=== PATIENT | female | born 1970 | race Caucasian/White ===

== ENCOUNTER 2018-06-17 10:31 | Observation (INO) ==
--- NOTE | 2018-06-16 22:21 | MH ---
cc: James Coleman MD DATE OF ADMISSION: 06/17/2018 ADMITTING DIAGNOSIS: Dysmenorrhea refractory to medical therapy. HISTORY OF PRESENT ILLNESS: The patient is a 47-year-old MW female, para 2-0-1-2, has been utilizing OCPs to decrease dysmenorrhea, and despite continuous therapy, that has continued. Her menstrual control has been good, but the cramping has worsened. Her most recent ultrasound from 04/24/2018 showed a 1.9 cm fibroid and the ovaries appeared normal. She is now admitted for hysterectomy. PAST MEDICAL HISTORY: Previous surgery included a in 1997 and 1994. MEDICATIONS: Vitamins, OCPs, paroxetine 40 mg daily. ALLERGIES: NONE. TRANSFUSIONS: None. SOCIAL HISTORY: Alcohol: Occasional. Tobacco: None. Drugs: None. FAMILY HISTORY: Noncontributory. PHYSICAL EXAMINATION: GENERAL: She is well-nourished, well-developed. VITAL SIGNS: Stable. HEENT: Normal. CHEST: Lungs clear. HEART: Regular rate. BREASTS: Symmetrical. ABDOMEN: Benign. PELVIC: External genitalia. Vagina normal. Cervix normal. She is about 12-week size. Adnexa nonpalpable. PLAN: As above, she is now admitted for laparoscopy with bilateral salpingectomy, with ovarian sparing if they are normal. The risks, benefits, alternatives, and complications explained and accepted. She is aware she may require later replacement therapy when she goes through menopause. If the ovaries are abnormal, selectively removed. MD QUIANA Rodriguez/[email or web address]/mojgan , 09:01 PM , 09:07 PM KARAN
[2018-06-17] MEDS ORDERED: ceFAZolin 2 GM Premix Inj 2 GM/100 ML BAG IV.SIG ONE (11:12)
[2018-06-17] MEDS ORDERED: Ketorolac Inj 30 MG/ML (IVP) Vial IV.PUSH ONE (12:00)
[2018-06-17] MEDS ORDERED: Glycopyrrolate Inj 1 MG/5 ML Syringe IV.PUSH ONE (12:00)
[2018-06-17] MEDS ORDERED: Neostigmine Inj 5 MG/5 ML Syringe IV.PUSH ONE (12:00)
[2018-06-17] MEDS ORDERED: ceFAZolin 2 GM/NS 100 ML IV; Q8H IV.SIG SCH ×2 (12:00)
[2018-06-17] MEDS ORDERED: Lidocaine PF 1% Inj 5 ML Syringe INFILTRATN ONE (12:00)
[2018-06-17] MEDS ORDERED: Metoprolol Tartrate 25 MG Tablet PO SCH (14:15)
[2018-06-17] MEDS ORDERED: Chlorhexidine Gluconate 2% 1 Pack (2 Cloths) TOPICAL SCH (14:15)
[2018-06-17] MEDS ORDERED: Bupivacaine Liposomal PF 1.3% Inj 20 ML Vial ONE (14:17)
[2018-06-17] MEDS ORDERED: Bupivacaine PF 0.5% Inj 30 ML Vial ONE (14:17)
[2018-06-17] MEDS ORDERED: HYDROmorphone PF Inj 1 MG/ML Ampul IV.PUSH PRN ×2 (14:32→15:08)
[2018-06-17] MEDS ORDERED: *Meperidine Inj 25 MG/ML Vial PERIprocedural Use ONLY ONE (14:41)
[2018-06-17] MEDS ORDERED: Sodium Chlor 0.9% Inj 500 ML IV.SIG SCH (15:00)
[2018-06-17] MEDS ORDERED: *morphine SULFATE 4 MG/ML PERIprocedure ONLY ONE (15:24)
[2018-06-17] MEDS: KCL 20 mEq/D5W/NaCl 0.45% Inj 1,000 ML IV.CONT SCH (15:30)
--- NOTE | 2018-06-17 15:53 | MP ---
cc: James Coleman MD DATE OF OPERATION: 06/17/2018 PREOPERATIVE DIAGNOSES: 1. Dysmenorrhea. 2. Uterine fibroids. POSTOPERATIVE DIAGNOSES: 1. Dysmenorrhea. 2. Uterine fibroids. 3. Left ovarian cystic mass. PROCEDURE PERFORMED: 1. Laparoscopy with a LASH. 2. Left salpingo-oophorectomy. 3. Right salpingectomy. ANESTHESIA: General, ET. SURGEON: James Coleman MD SALES [employer]ETING PROFESSIONAL: Liza Adams ESTIMATED BLOOD LOSS: Less than 50 mL FLUIDS: 1.1 liter crystalloid. OBJECTIVE FINDINGS: Following induction of adequate general endotracheal anesthesia, the patient was prepped and draped supine on the operating table in dorsal lithotomy position in sterile fashion with the bladder being drained via Siddiqui catheterization. The abdomen 3 cm curving infraumbilical incision using a knife to cut down through the skin to the fascia. The fascia opened transversely, stripped from the muscles and the peritoneum opened bluntly. The GelPort was placed. Laparoscope inserted. A 5mm port was placed in left lower quadrant and Airseall in the right lower quadrant. The uterus was about 12-week size with fibroids. Normal tubes, normal right ovary. Left ovary was cystic about 5 cm. Cul-de-sacs were clear. Liver edge was normal. Appendix was normal. Working first on the left, Harmonic scalpel was used to take the left ovarian vessels, left round ligament, left broad ligament, left side bladder flap and the left uterine vessels. On the right side, the Harmonic scalpel was used to take the right mesosalpinx, right round ligament, right broad ligament, right side of the bladder flap and the right uterine vessels. Harmonic scalpel was now used to amputate the fundus from the cervix and the fundus, the tubes and left ovary were extracted in a pouch through the GelPort site. Irrigation was performed. One area of bleeding on the right side of the uterus was controlled with a Harmonic scalpel. When the process was done there was no bleeding. The operative site was now coated with Evicel after inspection of both ureters revealed good peristalsis. The GelPort was now removed. Peritoneum sutured with a running 2-0 Vicryl. The fascia was sutured with a running locking stitch 0 vicryl midline and tied. Subcu 3-0 Vicryl, and the skin with a 3-0 Monocryl. The scope was reinserted at the lower ports, inspected GelPort site which was well closed with no entrapment of tissue or bleeding. Pelvis inspected. There was no bleeding. All instruments were removed. Counts were correct and the small wounds closed with 3-0 Monocryl subcuticular. Dermabond applied. The patient was to receive a TAP block and then awakened and taken to the recovery room in good condition. MD QUIANA Rodriguez/bonnie/aixa , 02:46 PM , 02:54 PM MTDD
[2018-06-17 17:20] LABS: Baso % (Auto) 0.1 % (0.0-2.0); Eos % (Auto) 0.1 % (0.0-4.0); Hematocrit 34.2 % (35.0-46.0); Hemoglobin 11.7 gm/dL (11.6-15.3); Lymph # (Auto) 0.5 th/mm3 (1.0-4.8); Lymph % (Auto) 4.3 % (9.0-44.0); Mean Corpuscular HGB Conc 34.1 % (32.0-36.0); Mean Corpuscular Hemoglobin 31.8 pg (27.0-34.0); Mean Corpuscular Volume 93.2 fL (80.0-100.0); Mean Platelet Volume 8.5 fL (7.0-11.0); Mono # (Auto) 0.2 th/mm3 (0.0-0.9); Mono % (Auto) 1.6 % (0.0-8.0); Neut # (Auto) 12.1 th/mm3 (1.8-7.7); Neut % (Auto) 93.9 % (16.0-70.0); Platelet Count 193 th/mm3 (150-450); Red Blood Count 3.67 mil/mm3 (4.00-5.30); Red Cell Distribution Width 12.9 % (11.6-17.2); White Blood Count 12.8 th/mm3 (4.0-11.0)
[2018-06-17 17:24] VITALS: RESP 18
[2018-06-17] MEDS: Ketorolac Inj 30 MG/ML (IVP) Vial IV.PUSH SCH ×2 (18:00→23:40)
[2018-06-17] MEDS ORDERED: Zolpidem Tartrate 5 MG Tablet PO PRN (21:00)
[2018-06-18] MEDS: KCL 20 mEq/D5W/NaCl 0.45% Inj 1,000 ML IV.CONT SCH (01:54)
[2018-06-18] MEDS ORDERED: HYDROmorphone PF Inj 2 MG/ML Vial IV.PUSH PRN (02:00)
[2018-06-18 05:56] LABS: Baso % (Auto) 0.1 % (0.0-2.0); Hematocrit 37.4 % (35.0-46.0); Hemoglobin 12.9 gm/dL (11.6-15.3); Lymph % (Auto) 7.8 % (9.0-44.0); Mean Corpuscular HGB Conc 34.4 % (32.0-36.0); Mean Corpuscular Hemoglobin 31.8 pg (27.0-34.0); Mean Corpuscular Volume 92.5 fL (80.0-100.0); Mean Platelet Volume 8.7 fL (7.0-11.0); Mono # (Auto) 0.6 th/mm3 (0.0-0.9); Mono % (Auto) 4.6 % (0.0-8.0); Neut # (Auto) 11.7 th/mm3 (1.8-7.7); Neut % (Auto) 87.5 % (16.0-70.0); Platelet Count 240 th/mm3 (150-450); Red Blood Count 4.05 mil/mm3 (4.00-5.30); Red Cell Distribution Width 12.9 % (11.6-17.2); White Blood Count 13.3 th/mm3 (4.0-11.0)
[2018-06-18] MEDS: Ketorolac Inj 30 MG/ML (IVP) Vial IV.PUSH SCH (06:03)
[2018-06-18 06:23] LABS: Calcium 7.8 mg/dL (8.5-10.1); Carbon Dioxide 22.7 meq/L (21.0-32.0); Potassium 4.2 meq/L (3.5-5.1)
[2018-06-18 08:53] VITALS: BP 125/94; PULSE 73; TEMP 98.1; O2SAT 95
[2018-06-18] MEDS ORDERED: FLUoxetine 20 MG Capsule PO SCH (09:00)
== END 2018-06-18 10:17 | disposition home or self-care (01) ==
LOC: H1EA 10:31 → HSDI 10:31 → HSDC 10:31 → H1EA 16:52
PROVIDERS: ADMIT Obstetrics & Gynecology; ATTEND Obstetrics & Gynecology
PROC: LAPLASH (ICD-10-PCS; 2018-06-17 12:47)